=== PATIENT | female | born 1955 | race Caucasian/White ===

== ENCOUNTER 2021-02-27 07:57 | Observation (INO) ==
--- NOTE | 2021-01-23 11:23 | PAT Medication Instructions ---
Medication Instructions Date of Service January 23, 2021 Home Medications cholecalciferol (vitamin D3) 25 mcg (1,000 unit) capsule 2,000 mcg PO QAM multivitamin 1 tab PO QAM venlafaxine 150 mg capsule,extended release 24 hr 150 mg PO QAM verapamil 240 mg tablet,extended release 240 mg PO QAM [facility] 1 tab PO QAM ascorbic acid-vitamin E-biotin [Hair, Skin, Nails with Biotin] 1 tab PO QAM cyanocobalamin (vitamin B-12) 1,000 mcg PO QAM lisinopril-hydrochlorothiazide 1 tab PO QAM magnesium 250 mg PO QAM zinc 50 mg PO QAM STOP taking 2 weeks before surgery (or as soon as possible if surgery is within 2 weeks) [facility] 1 tab PO QAM ascorbic acid-vitamin E-biotin [Hair, Skin, Nails with Biotin] 1 tab PO QAM DO NOT take the morning of surgery cholecalciferol (vitamin D3) 25 mcg (1,000 unit) capsule 2,000 mcg PO QAM multivitamin 1 tab PO QAM cyanocobalamin (vitamin B-12) 1,000 mcg PO QAM lisinopril-hydrochlorothiazide 1 tab PO QAM magnesium 250 mg PO QAM zinc 50 mg PO QAM Take morning of surgery With a small sip of water, OTHERWISE NOTHING TO EAT OR DRINK AFTER MIDNIGHT: venlafaxine 150 mg capsule,extended release 24 hr 150 mg PO QAM verapamil 240 mg tablet,extended release 240 mg PO QAM Other Notes If you have any questions please call us at [phone] or [phone] or [phone] or [phone]
--- NOTE | 2021-01-28 10:48 | Anesthesiology Consultation ---
Date of Service January 28, 2021 Assessment & Plan (1) Encounter for pre-operative examination: Chart Review Chart Review: Acceptable Risk for Surgery (pending preop Covid testing results ) and Patient seen in Pre Admission Testing Per PAT appointment 01/28/2021, patient resides in [facility]. 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 Wears mask when in public and socially distances. No known Covid positive contacts or Covid related symptoms. No known Covid infection in the past 90 days. Preop Covid testing scheduled 02/25/21= will await results. Educated on importance of self quarantining, social distancing and wearing mask in public both for the patient after Covid testing done. Pt vaccinated for Covid. Teaching & Discussion Pre-Anesthesia Teaching/Discussion Notes: Instructed NPO after midnight before surgery,except medications with 15 cc of water. Medication instructions provided according to the [facility] guidelines. History Surgery Operation Date: 02/27/21 07:00 Proposed Procedures p Right Partial Knee Replacement VS Total Knee Replacement - Ned Browning MD Height/Weight Height: 5 ft 9 in Weight: 122.6 kg Allergies Allergy/AdvReac Type Severity Reaction Status Date / Time cephalexin [From Keflex] Allergy Severe Anaphylaxis Verified 01/22/21 14:30 clindamycin Allergy Severe ISCHEMIC Verified 01/22/21 14:30 COLITIS latex Allergy Mild ITCHY WITH Verified 01/22/21 14:30 GLOVES almond Allergy Unknown NOT TO EAT Verified 01/22/21 14:30 PER ALLERGY TESTING Penicillins AdvReac Severe Anaphylaxis Verified 01/22/21 14:30 Sulfa (Sulfonamide AdvReac Severe Anaphylaxis Verified 01/22/21 14:30 Antibiotics) Medications Home Medications Medication Instructions Recorded Confirmed Last Taken cholecalciferol (vitamin D3) 25 2,000 mcg PO QAM 02/04/20 01/22/21 Unknown mcg (1,000 unit) capsule multivitamin 1 tab PO QAM 02/04/20 01/22/21 Unknown venlafaxine 150 mg 150 mg PO QAM 02/04/20 01/22/21 Unknown capsule,extended release 24 hr verapamil 240 mg tablet,extended 240 mg PO QAM 02/04/20 01/22/21 Unknown release Elderberry [facility] Otc 1 tab PO QAM 01/22/21 01/22/21 Unknown ascorbic acid-vitamin E-biotin 1 tab PO QAM 01/22/21 01/22/21 Unknown [Hair, Skin, Nails with Biotin] cyanocobalamin (vitamin B-12) 1,000 mcg PO QAM 01/22/21 01/22/21 Unknown lisinopril-hydrochlorothiazide 1 tab PO QAM 01/22/21 01/22/21 Unknown magnesium 250 mg PO QAM 01/22/21 01/22/21 Unknown zinc 50 mg PO QAM 01/22/21 01/22/21 Unknown Past Medical History Medical History Chronic obstructive pulmonary disease Well controlled and stable Hyperlipidemia DIET MANAGED Hypertension Neck pain FULL ROM Temporomandibular joint disorder BILAT CLICKS-NO RECENT LOCKING Thyroid nodule ANNUAL CHECKS-HAS HAD NEEDLE BX- BENIGN Exercise / Class Metabolic Activity II 4-5 Yardwork/Stairs/Walk up hill (ONE FLIGHT OF STAIRS- NO CHEST PAIN OR SOB ) Past Family History Family History Father Family history of diabetes mellitus Past Surgical History Surgical History History of anesthesia reaction "DIFFICULT TO WAKE" History of bilateral tubal ligation History of section History of cholecystectomy History of colonoscopy 2018 History of esophagogastroduodenoscopy (EGD) Nodule of larynx REMOVAL OF Past Anesthesia History No Hx of Anesthesia Complications (WITH EXCEPTION TO SLOW TO WAKE- GROGGY/PROLONGED WAITING- NO ICU STAY OR REINTBUATION ) and No Family Hx of Anesthesia Complications History of PONV No Hx of PONV and No Hx of Motion Sickness Social History Smoking Status: Former smoker Do You Dip or Chew Tobacco: No Smoking End Date: QUIT 30'S Hx Alcohol Use: Yes Alcohol type: wine Alcohol Intake Frequency Comment: RARELY Hx Substance Use: No Review of Systems Occ reflux - relieved OTC meds Hx of snoring- loud and witnessed apnea - no hx of sleep study Patient denies chest pain, shortness of breath, dyspnea on exertion, cough, wheezing, palpitations. No hx of seizures, stroke, RI. No hx of blood clots or blood transfusions Physical Exam Vital Signs VITALS BP 123/80 P 66 TEMP 98.6 SP02 96% RESP 16 Constitutional no acute distress ENMT Mouth: no TMJ clicking Thyromental Distance: > or= 3.5 Finger Breadths (3.5) Mallampati Class: III Crowns to molars Neck neck extension not limited Respiratory normal respiratory effort; no respiratory distress Auscultation: lungs clear to auscultation bilaterally; no wheezes Cardiovascular Rate/Rhythm: regular rate and regular rhythm Heart Sounds: no murmur Vessels: no carotid bruit Musculoskeletal Spine: no pain with cervical ROM Extremities: extremities normal to inspection Psychiatric Orientation: alert Lab Results Anesthesia Preop Results Results Anesthesia Widget: WBC 7.78 K/uL (4.8-10.8) 01/28/21 Hgb 12.0 g/dL (12.0-16.0) 01/28/21 Hct 37.9 % (37-47) 01/28/21 Plt 376 K/uL (130-400) 01/28/21 Na 140 mmol/L (136-145) 01/28/21 K 3.7 mmol/L (3.5-5.1) 01/28/21 Cl 109 mmol/L (98-107) H 01/28/21 CO2 29 mmol/L (21-32) 01/28/21 BUN 21 mg/dl (7-18) H 01/28/21 Creat 0.62 mg/dl (0.6-1.2) 01/28/21 Glucose Level 104 mg/dl (70-99) H 01/28/21 PT 10.5 Seconds (9.0-12.0) 01/28/21 PTT 23.9 Seconds (21.0-31.0) 01/28/21 INR 1.0 (0.9-1.1) 01/28/21 Blood Type AB Positive 01/28/21 Antibody Screen NEGATIVE 01/28/21 Testing Electrocardiogram Date: 01/28/21 Findings: + NSR @ (63bpm) Chest X-Ray Date: 01/28/21 Findings: + NAD
--- NOTE | 2021-02-22 23:48 | History and Physical Report ---
DATE OF ADMISSION: 02/27/2021. CHIEF COMPLAINT: Persistent and progressive right knee pain and discomfort. HISTORY OF PRESENT ILLNESS: A 66-year-old female who presents for surgical treatment of her right knee. She has a 2-year history of gradual progressive increasing right knee pain and discomfort, it has gradually gotten worse over the past 2 years. Initially aggravated by walking her dog and sustaining a twisting injury. She had about a year of local treatment consisting of steroid shots and viscosupplementation, which helped her initially. Symptoms have progressed over time. She did have a viscosupplementation injection more recently, which made things worse. It is felt she had a little bit of a reaction to it. Pain is all medial. She has difficulty walking any distance. She would like to have something done. She has been gaining weight due to her decreased mobilization. PAST MEDICAL HISTORY: 1. Hypertension. 2. Elevated cholesterol. 3. Gastroesophageal reflux disease. 4. Back pain. 5. Obesity with BMI of 40. PAST SURGICAL HISTORY: Include, 1. Cholecystectomy. 2. Lump removed from her throat. 3. . ALLERGIES: PENICILLIN AND SULFA, KEFLEX AND CLINDAMYCIN. No allergy to vancomycin. CURRENT MEDICATIONS: Include, 1. Lisinopril/hydrochlorothiazide. 2. Verapamil. 3. Venlafaxine. 4. Multivitamin. SOCIAL HISTORY: A 66-year-old female. Does not smoke. No alcohol intake. FAMILY HISTORY: Noncontributory. REVIEW OF SYSTEMS: Negative for diabetes, neurologic problems, vascular problems, or bleeding disorders. No chest pain or shortness of breath. No history of DVT or PE. No groin pain. PHYSICAL EXAMINATION: GENERAL: Shows a pleasant middle-aged female. Looks to be in pretty good health. HEENT: Benign. NECK: Supple, no lymphadenopathy. LUNGS: Clear to auscultation. HEART: Regular rate and rhythm. ABDOMEN: Soft, nontender, nondistended. EXTREMITIES: Grossly neurovascularly intact except as follows: Examination of the right knee reveals the patient walks with a slight bit of a limp. She has got varus alignment to her knee. She is tender over the medial joint line. A little tenderness over her pes tendons as well. Small knee effusion. Range of motion 0-125. No instability. ACL appears intact. IMAGING DATA: X-rays of the right knee reviewed. It shows fairly advanced medial compartment DJD. She has still got a little bit of joint space remaining. It has progressed significantly over the past several months. She has got mild patellofemoral disease. The lateral compartment is pretty well preserved. MRI from previously reviewed. It shows medial compartment arthritis. She has extrusion of her medial meniscus. Small to moderate sized knee effusion. ASSESSMENT: A 66-year-old white female with moderate to advanced medial compartment degenerative joint disease of the right knee. She has failed conservative treatment. X-rays have progressed significantly over the past year. She would like to have something done. PLAN: We discussed treatment options. We are going to proceed with right partial knee replacement. If we get in there and it is too bad, we will do a full knee replacement. The risks and benefits of this procedure were explained to the patient and include, but not limited to, DVT, PE, , infection, neurological injury, vascular injury, bleeding problem, pain, limited range of motion, stiffness, failure to relieve her symptoms, incomplete relief of symptoms, need for further surgery in the future, fracture, leg length inequality, nerve palsy, and need for revision surgery. The patient understands and desires to proceed. Informed consent obtained. She has multiple allergies including cephalosporins. We will give her vancomycin preoperatively. She is planning to be discharged to home with some home health. She knows to hold her lisinopril the morning of surgery. Job ID: [id number] [facility]
[~2021-02-27 07:57] MED LIST: ACETAMINOPHEN 500 MG TAB PO SCH; BUPIVACAINE 0.5 % 5 MG/1 ML PF 10ML VIAL ONE; BUPIVACAINE LIPOSOME/PF 266 MG, BUPIVACAINE/EPINEPHRINE 50 ML, SODIUM CHLORIDE 0.9% 30 ... INFIL SCH; EPINEPHrine INJ 1 MG/ML AMP ONE; FAMOTIDINE 20 MG TAB PO SCH; GABAPENTIN 600 MG DOSE PO SCH; LR 500ML BOLUS, THEN 15ML/HR IV SCH; LR 60ML/HR IV SCH; ROPIVACAINE 0.5% 5 MG/ML 30 ML VIAL ONE; Scopolamine 1 MG TDSY TD SCH; TRANEXAMIC ACID 1,000 MG **IV Intra-op IV SCH; VANCOMYCIN HCL 1,750 MG in SODIUM CHLORIDE 0.9% 500 ML IV SCH
[2021-02-27] MEDS ORDERED: PHENYLEPHRINE 100MCG/ML 5ML SYR IV PRN (08:40)
[2021-02-27] MEDS ORDERED: ePHEDrine sulfate 50 MG/ML AMP IV PRN (08:40)
[2021-02-27] MEDS ORDERED: HYDROmorphone INJ 1 MG/ML SYRINGE IV PRN (08:40)
[2021-02-27] MEDS ORDERED: fentaNYL citrate 100 MCG/2 ML VIAL IV PRN (08:40)
[2021-02-27] MEDS ORDERED: ATROPINE SULFATE 0.1 MG/ML 10ML SYR IV PRN (08:40)
[2021-02-27] MEDS ORDERED: ONDANSETRON INJ 2 MG/ML 2 ML VIAL IV PRN ×2 (08:40→14:25)
[2021-02-27] MEDS ORDERED: LABETALOL HCL IV 5 MG/ML 20ML IV PRN (08:40)
[2021-02-27] MEDS ORDERED: MEPERIDINE HCL 25 MG/ML CARP/VIAL IV PRN (08:40)
--- NOTE | 2021-02-27 08:51 | History & Physical Bridge Note ---
Date of Service February 27, 2021 History & Physical Bridge Note I have examined the patient, reviewed the History & Physical and in the interval since the performance of the History & Physical I have noted the following changes of clinical significance: no changes noted
[2021-02-27] MEDS ORDERED: fentaNYL citrate 100 MCG/2 ML VIAL ONE (09:25)
[2021-02-27] MEDS ORDERED: MIDAZOLAM HCL 1 MG/ML 2ML VIAL ONE (09:25)
[2021-02-27] MEDS ORDERED: PROPOFOL IV EMULSION 10 MG/ML 20 ML VIAL IV ONE ×3 (09:25→11:50)
[2021-02-27] MEDS ORDERED: PHENYLEPHRINE 100MCG/ML 5ML SYR ONE ×2 (09:33→11:50)
[2021-02-27] MEDS ORDERED: SODIUM CHLORIDE 0.9% PF 50 ML VIAL ONE (11:06)
[2021-02-27] MEDS ORDERED: BUPIVACAINE 0.25% 30 ML VIAL ONE (11:07)
[2021-02-27] MEDS ORDERED: BUPIVACAINE LIPOSOME 1.3% 266 MG/20 ML VIAL ONE (11:07)
[2021-02-27] MEDS ORDERED: EPINEPHrine INJ 1 MG/ML AMP ONE (11:08)
[2021-02-27] MEDS ORDERED: ePHEDrine sulfate 50 MG/ML SYR ONE (11:50)
--- NOTE | 2021-02-27 13:29 | Operative Report ---
Post Operative Report Pre & Post Diagnosis Operation Date: 02/27/21 10:40 Pre-Op Diagnosis: Right Knee Osteoarthritis Post-Op Diagnosis: Right Knee Osteoarthritis I identified the patient and participated in the time-out.: Yes Procedure Operation Date: 02/27/21 10:40 Actual Procedures p Right Total Knee Replacement(Right) - Ned Browning MD Surgeon Ned Browning MD Completion Manager HEBER Cleveland Estimated Blood Loss 50 Findings Consistent with Post-Op Diagnosis Operative findings were advanced medial compartment DJD. She is extensive grade 4 qlod-is-xndh disease the medial femoral condyle medial tibial plateau. Not really any eburnation but full-thickness cartilage loss. She had extensive grade 4 changes of the trochlea and the patella as well particular the medial facet. She had some focal grade 4 changes laterally. Specimens Right knee sent for pathology. Drains None Anesthesia Type Spinal MAC Complications none Disposition Accompanied Patient To Recovery: No Indications Patient is 66-year-old fairly active female has been followed for the past year for right knee pain discomfort patient been through extensive conservative treatment which is not worked at all. X-ray showed progressive knee arthritis. She failed conservative measures and elected proceed with surgical treatment. The initial plan was to do a partial knee replacement based on her x-rays but do a full knee replacement if she had more extensive disease which was found at the time of surgery. Description of Procedure Operative implants consist of: 1. Biomet Vanguard size 70 right posterior stabilized femoral component. 2. Biomet size 71 tibial tray. 3. 12 mm posterior stabilized polyethylene insert. 4. 31 x 8 all polypatella. The patient was taken to the operating, identified, and placed on the operating table supine position but a contractors were properly padded IV antibiotics tried by anesthesia team. A spinal anesthetic and abductor canal block had been applied in the holding area. Hi catheter was placed in sterile fashion. Right thigh tourniquet placed in the right lower extremity was then prepped and draped in usual sterile fashion. The right leg was elevated exsanguinated with use of an Esmarch and tourniquet placed at 3 mmHg. An anterior approach to the right knee was then performed th rough longitudinal incision centered over the patella. Sharp dissection was carried through subcutaneous tissue down the extensor mechanism. A medial parapatellar arthrotomy incision was made. Some subperiosteal dissection was carried medially. The fat pad was resected from each patella tendon. Lateral patellofemoral ligament was released. Patella subluxated laterally and the knee was flexed. The osteophyte taken off distal femur. The ACL and PCL were then released from the distal femur and the tibia subluxated anteriorly. External tibial alignment jig was then placed in the interface of the tibia and adjusted 14 mm medially. Proximal tibial was then cut to remove about 3 to 4 mm of bone from the medial side. Some osteophytes taken off medial and posterior medially. The tibia was sized to a size 71. Attention drawn the femur. The distal femur then with a sharp drop with intramedullary canal was suction. A right 5 degree valgus cutting guide was placed. Distal femoral cutting block was pinned in place but distal femoral cut was made to take an additional 3 mm of bone off distal femur. The femur was then sized to a size 70. The AP cutting block was pinned parallel to the epicondylar axis which was 5 degrees of external rotation. The anterior cut, anterior chamfer, posterior cut, posterior chamfer cuts were made. The box cutting guide was placed in just slight lateral and the box cut was made. The knee was flexed with the remnants of the medial and lateral menisci were excised. The osteophytes were taken off the posterior aspect the femur. A trial femoral component was placed but the tibial tray was pinned in maximum external rotation and the drill and stem punch were used to create defect in proximal tibia for the tibial tray. The knee was then trialed and 12 mm insert fit most appropriately. Attention drawn the patella. Nipride the patella was cleaned of all soft tissues. Patella thickness measured 22 mm in thickness was cut down to 13. It was sized to a size 31 patella. The lug holes were drilled for a 31 patella. The lateral osteophyte is moved. Patella button was placed. Knee was taken through range of motion patella tracked joni soheila with no thumbs test. Attention drawn to placing permanent components. Nupathe all trial components were removed. Bone plug was placed in the distal femur limit blood loss. Double batch Palacos G cement was mixed. A Biomet Vanguard size 70 right posterior stabilized femoral component, size 71 tibial tray, 12 mm posterior stabilized polyethylene insert, and a 31 x 8 all polypatella then cemented in place. Knee was brought out to full extension total cement hardened. Final cement check was then performed. The pericapsular tissues were injected with 100 cc of combination of 20 cc of Exparel, 30 cc normal saline, 50 cc of quarter percent Marcaine with epinephrine. Patient did receive 1 g tranexamic acid but the tourniquet was let down for final turn time 55 minutes. Hemostasis assured use electrocautery. Extensor mechanism closed with combination 1 PDS suture and 1 Vicryl suture in [id number] fashion with extensor mechanism checked found to be intact with subcutaneous tissue then closed with 2 Dexon suture in a buried interrupted fashion skin was closed skin kirstin. Leg was then cleaned dried a sterile dressing was Xeroform, 4 x 4's, sterile cast padding, Leodan bandage were applied. Patient then transferred to the recovery room in stable condition. Patient tolerated procedure well and there were no complications. Aryan Cleveland, my physician assistant professor of forestry, was present for the entire procedure. His assistance was essential and required for appropriate patient positioning, prepping and draping, surgical exposure, performing the technical details of the operation, placement the implants, closure of the wound, and placement of the sterile bandage. I attest to the content of the Intraoperative Record and any orders documented therein. Any exceptions are noted below.
--- NOTE | 2021-02-27 13:41 | XRay Report ---
XR knee RT 1 or 2V routine CLINICAL HISTORY: Postoperative evaluation. COMPARISON: Right knee radiographs July 12, 2019. MRI of the right knee September 25, 2019. FINDINGS: Alignment of the total right knee arthroplasty is anatomic. There is no periprosthetic fra cture or unexpected radiopaque foreign body. There are skin kirstin. IMPRESSION: Expected findings following total right knee arthroplasty. ACT 112: Negative or not required by law. Electronically signed by: Tra Becerra M.D. 02/27/2021 1:39 PM
--- NOTE | 2021-02-27 14:16 | Anesthesiology Progress Note ---
Date of Service February 27, 2021 Anesthesia Post Procedure Vital Signs Vital Signs: Temp Pulse Pulse Resp BP Pulse Ox 02/27/21 14:10 36.9 C 51 L 14 113/51 L 94 02/27/21 14:00 36.9 C 55 L 19 99/45 L 94 02/27/21 13:50 54 L 16 94/40 L 98 02/27/21 13:40 57 L 12 101/46 L 100 02/27/21 13:30 59 L 12 91/43 L 100 02/27/21 13:20 36.7 C 80 14 96/42 L 95 02/27/21 09:02 36.7 C 77 20 147/61 H 95 Transfer of Care Handoff Completed per policy Notes Mental Status: alert / awake / arousable Patient Amnestic to Procedure: Yes Nausea / Vomiting: adequately controlled Pain: adequately controlled Airway Patency, RR, SpO2: stable & adequate BP & HR: stable & adequate Hydration State: stable & adequate Neuraxial Anesthesia: was administered and sensory block is resolving Anesthetic Complications: no major complications apparent and Pt Satisfied with anesthetic care
[2021-02-27] MEDS ORDERED: diphenhydrAMINE Capsule 25 MG CAP PO PRN (14:25)
[2021-02-27] MEDS ORDERED: METOCLOPRAMIDE HCL INJ 5 MG/ML 2 ML VIAL IV PRN (14:25)
[2021-02-27] MEDS ORDERED: VANCOMYCIN CONSULT ACTIVE PRN (14:25)
[2021-02-27] MEDS ORDERED: MAGNESIUM HYDROXIDE SUSP 30 ML UDC PO PRN (14:25)
[2021-02-27] MEDS ORDERED: bisacodyL 10 MG SUPP PR PRN (14:25)
[2021-02-27] MEDS ORDERED: NALOXONE HCL 0.4 MG/1 ML VIAL/CARP IV PRN (14:25)
[2021-02-27] MEDS ORDERED: ALUMINUM/MAGNESIUM SUSP 30 ML UDC PO PRN (14:25)
[2021-02-27] MEDS ORDERED: HYDROmorphone INJ 0.5 MG/0.5 ML SYR IV PRN (14:25)
[2021-02-27] MEDS ORDERED: PNEUMOCOCCAL Polysaccharide Vaccine 25mcg/0.5mL vial/Syr IM ONE (15:30)
[2021-02-27] MEDS: SODIUM CHLORIDE 0.9% 1000ML 1,000 ML IV SCH (15:32)
[2021-02-27] MEDS: KETOROLAC 30 MG/ML VIAL IV SCH ×2 (16:20→22:07)
[2021-02-27] MEDS: Scopolamine CHECK PATCH PLACEMENT SCH ×2 (16:20→23:13)
[2021-02-27] MEDS: ASCORBIC ACID 500 MG TAB PO SCH (16:27)
[2021-02-27] MEDS: oxyCODONE HCL IR 5 MG TAB (IMMEDIATE RELEASE) PO PRN (16:28)
[2021-02-27] MEDS ORDERED: TRANEXAMIC ACID / 0.7% NACL 1,000 MG/100 ML BAG IV SCH (19:15)
[2021-02-27] MEDS ORDERED: VANCOMYCIN HCL 1,750 MG in SODIUM CHLORIDE 0.9% 500 ML IV SCH (20:00)
[2021-02-27] MEDS: TAPENTADOL HCL ER 50 MG TABCR PO SCH (20:28)
[2021-02-27] MEDS: DOCUSATE SODIUM 100 MG CAP PO SCH (20:28)
[2021-02-27] MEDS: ASPIRIN 81 MG ECTAB PO SCH (20:29)
[2021-02-27] MEDS ORDERED: SENNA 8.6 MG TAB PO SCH (21:00)
[2021-02-27] MEDS: ACETAMINOPHEN 500 MG TAB PO SCH (22:07)
[2021-02-28] MEDS: SODIUM CHLORIDE 0.9% 1000ML 1,000 ML IV SCH (02:14)
[2021-02-28] MEDS: KETOROLAC 30 MG/ML VIAL IV SCH ×2 (03:21→09:20)
[2021-02-28] MEDS: ACETAMINOPHEN 500 MG TAB PO SCH ×2 (05:37→14:18)
[2021-02-28 06:01] LABS: Hemoglobin 10.4 g/dL (12.0-16.0); Mean Corpuscular Hgb Conc 30.6 g/dL (32-36); Mean Corpuscular Volume 88.3 fL (80-100); Mean Platelet Volume 8.6 fL (7.4-10.4); Platelet Count 275 K/uL (130-400); RDW Coefficient of Variation 14.9 % (11.5-14.5); RDW Standard Deviation 48.2 fL (36.4-46.3); Red Blood Count 3.85 M/uL (4.2-5.4); White Blood Count 6.94 K/uL (4.8-10.8)
[2021-02-28 06:43] LABS: BUN Creatinine Ratio 23.6 (10-20); Calcium 8.3 mg/dl (8.5-10.1); Creatinine Clr Calc Pharmacy 117.8 ml/min; Est GFR (African American) 107.7 ml/min; Est GFR (Non-African American) 92.9 ml/min
[2021-02-28] MEDS ORDERED: dexAMETHasone 10 MG in SYRINGE 0 ML IV SCH (08:00)
[2021-02-28] MEDS: TAPENTADOL HCL ER 50 MG TABCR PO SCH (08:11)
[2021-02-28] MEDS: ASCORBIC ACID 500 MG TAB PO SCH (08:12)
[2021-02-28] MEDS: ASPIRIN 81 MG ECTAB PO SCH (08:12)
[2021-02-28] MEDS: DOCUSATE SODIUM 100 MG CAP PO SCH (08:12)
[2021-02-28] MEDS: Scopolamine CHECK PATCH PLACEMENT SCH (08:12)
[2021-02-28] MEDS ORDERED: NURSING DECISION MEDICATION ONE (08:20)
[2021-02-28] MEDS ORDERED: COUGH DROP (SUGAR FREE) LOZ 24 LOZ/1 BOX BUCCAL PRN (08:27)
[2021-02-28] MEDS ORDERED: ZINC SULFATE 220 MG CAPSULE PO SCH (09:00)
[2021-02-28] MEDS ORDERED: VERAPAMIL HCL 240 MG TABCR PO SCH (09:00)
[2021-02-28] MEDS ORDERED: MAGNESIUM OXIDE 400 MG TAB PO SCH (09:00)
[2021-02-28] MEDS ORDERED: CHOLECALCIFEROL 1,000 UNITS 25 MCG TAB PO SCH (09:00)
[2021-02-28] MEDS ORDERED: LISINOPRIL/HCTZ 20/12.5MG 1 TAB TAB PO SCH (09:00)
[2021-02-28] MEDS ORDERED: NON-FORMULARY MEDICATION (Ascorbic Acid-Vitamin E-Biotin [Hair, Skin, Nails With Biotin] 7 PO SCH (09:00)
[2021-02-28] MEDS ORDERED: ELDERBERRY PO SCH (09:00)
[2021-02-28] MEDS ORDERED: CYANOCOBALAMIN 500 MCG TABLET (VITAMIN B-12) PO SCH (09:00)
[2021-02-28] MEDS ORDERED: MULTIVITAMIN TAB PO SCH ×2 (09:00)
[2021-02-28] MEDS ORDERED: VENLAFAXINE HCL XR 150 MG CAPXR PO SCH (09:00)
--- NOTE | 2021-02-28 09:10 | Progress Notes ---
DATE OF SERVICE: 02/28/2021 SUBJECTIVE: A 66-year-old female postoperative day 1 from right knee replacement. She is doing pret ty well. Pain is controlled. Had a reasonable night. She did get up and walk some. No chest pain or shortness of breath. Not feeling dizzy or lightheaded. OBJECTIVE: VITAL SIGNS: Temperature 36.9. Vital signs are stable. GENERAL: Shows a pleasant middle-aged female. She is sitting up in bed, looks quite comfortable. LUNGS: Clear to auscultation. HEART: Regular rate and rhythm. ABDOMEN: Soft, nontender, nondistended. EXTREMITIES: Grossly neurovascularly intact except as follows: Examination of the right leg reveals the leg to be well aligned. Dressing is clean, dry and intact. She can dorsiflex and plantarflex h er foot appropriately. NEUROLOGIC: She is neurologically intact. LABORATORY DATA: Hemoglobin is 10.4. Hematocrit 34.0. Electrolytes are stable. ASSESSMENT: A 66-year-old female postoperative day 1 from a right knee replacement, doing pretty wel l. Pain has been controlled. She is neurologically intact. PLAN: 1. DVT prophylaxis include thigh-high TEDs, SCDs, and aspirin twice a day. 2. PT, OT, weightbear as tolerated. Right total knee protocol. 3. Pain control, doing okay with current pain regimen. 4. Disposition. Plan to discharge her home with some home health later today if does okay in therap y. Job ID: [id number]
[2021-02-28] MEDS: oxyCODONE HCL IR 5 MG TAB (IMMEDIATE RELEASE) PO PRN (14:18)
== END 2021-02-28 14:31 | disposition home health service (06) ==
LOC: 3E 07:57 → ASU 07:57